=== PATIENT | female | born 1965 | race Caucasian/White ===

== ENCOUNTER 2016-08-20 15:16 | Emergency (ER) | payer BC ==
[~2016-08-20] VITALS: Ht 167.6 cm; Wt 74.3 kg
[~2016-08-20 15:16] MED LIST: ADVIL200 MG; ALEVE220 M2; ALLEGRA ALLERG180 MG PO; ALLEGRA180 MG PO; BENTYL10 MG PO; FLAGYL500 MG PO; FLEXERIL10 MG PO; HYDROCODON-ACE1 EAC7 PO; LEVOXYL137 MCG PO; LIDODERM 5% P1 PATCH TD; LOPERAMIDE2 MG PO; MOTRIN600 MG PO; PREDNISONE10 MG PO; PROBIOTIC1 EAC1 PO; PROMETHAZINE HC25 M1 PO; SINGULAIR10 MG PO; SYNTHROID175 MCG PO; ZOFRAN ODT4 MG PO
[2016-08-20 15:35] LABS: POINT-OF-CARE METER ID UU13113778
[2016-08-20 15:57] LABS: ADD MIUA? YES; BILIRUBIN NEGATIVE; BLOOD NEGATIVE; COLOR YELLOW ((YELLOW)); GLUCOSE (STRIP) >=500; KETONES 5; LEUKOCYTES NEGATIVE; NITRITE NEGATIVE; PROTEIN (STRIP) NEGATIVE; SPECIFIC GRAVITY 1.022 (1.000-1.030)
[2016-08-20 16:06] LABS: MCH 28.2 PG (29.0-34.0); MCHC 31.5 G/DL (30.0-36.0); MCV 89.5 FL (83-99); MEAN PLAT.VOLUME 11.2 uM^3 (9.5-12.4); PLATELET COUNT 173 K/uL (156-360); RBC DIS.WIDTH-CV 13.6 % (11.8-14.6); RBC DIS.WIDTH-SD 44.5 % (39-53); RED BLOOD COUNT 4.47 M/uL (3.80-5.20); WHITE BLOOD COUNT 7.5 K/uL (4.1-10.2)
[2016-08-20 16:08] LABS: BACTERIA RARE /HPF; CALCIUM OXALATE CRYSTALS 4+ /HPF; EPITHELIAL CELLS 2+ /HPF; MUCUS 1+ /LPF; RED BLOOD CELLS 0-5 /HPF (0-5); WHITE BLOOD CELLS 0-5 /HPF (0-5)
[2016-08-20 16:15] LABS: CHLORIDE 103 mEq/L (99-109); POTASSIUM 4.2 mEq/L (3.7-5.4); SODIUM 142 mEq/L (136-147)
[2016-08-20 16:17] LABS: GLUCOSE 343 mg/dL (70-99)
[2016-08-20 16:19] LABS: ANION GAP 8 MEQ/L (2-14)
[2016-08-20 16:21] LABS: GFR ESTIMATE (CALCULATED) > 59 mL/min/
[2016-08-20 16:22] LABS: UREA NITROGEN (BUN) 16 mg/dL (9-23)
[2016-08-20 17:19] VITALS: BP 136/60
== END 2016-08-20 17:21 | disposition home or self-care (01) ==
LOC: EME 15:16
PROVIDERS: Nurse Practitioner Family
DX: E11.649 Type 2 diabetes mellitus with hypoglycemia without coma (principal)
CPT/HCPCS: 80048; 81003; 82948; 85027; 99281; 99284

== ENCOUNTER 2016-12-29 05:06 | Emergency (ER) | payer BC ==
[~2016-12-29] VITALS: Ht 167.6 cm; Wt 86.5 kg
[2016-12-29 05:22] LABS: POINT-OF-CARE METER ID UU14100415
[2016-12-29 05:41] LABS: HEMATOCRIT 44.8 % (36.0-46.0); MCH 28.8 PG (29.0-34.0); MCHC 32.8 G/DL (30.0-36.0); MCV 87.7 FL (83-99); MEAN PLAT.VOLUME 10.9 uM^3 (9.5-12.4); PLATELET COUNT 212 K/uL (156-360); RBC DIS.WIDTH-CV 13.1 % (11.8-14.6); RBC DIS.WIDTH-SD 42.3 % (39-53); RED BLOOD COUNT 5.11 M/uL (3.80-5.20); WHITE BLOOD COUNT 18.1 K/uL (4.1-10.2)
[2016-12-29 05:44] LABS: INTER. NORMALIZED RATIO 0.9; PROTHROMBIN TIME 10.1 SEC (10.2-12.9)
[2016-12-29 05:45] LABS: CHLORIDE 101 mEq/L (99-109); POTASSIUM 4.1 mEq/L (3.7-5.4)
[2016-12-29 05:46] LABS: SODIUM 144 mEq/L (136-147)
[2016-12-29 05:47] LABS: GLUCOSE 117 mg/dL (70-99); PTT 30.4 SEC (25-37)
[2016-12-29 05:49] LABS: ANION GAP 13 MEQ/L (2-14)
[2016-12-29 05:51] LABS: GFR ESTIMATE (CALCULATED) > 59 mL/min/
[2016-12-29 05:52] LABS: UREA NITROGEN (BUN) 28 mg/dL (9-23)
[2016-12-29 05:55] LABS: TROP-I INTERPRETATION NEGATIVE; TROPONIN-I < 0.01 ng/mL (0.0-0.30)
[2016-12-29 07:43] LABS: ADD MIUA? YES; BILIRUBIN NEGATIVE; BLOOD NEGATIVE; GLUCOSE (STRIP) NEGATIVE; KETONES 5; LEUKOCYTES NEGATIVE; NITRITE NEGATIVE; PROTEIN (STRIP) 30; SPECIFIC GRAVITY 1.032 (1.000-1.030)
[2016-12-29 07:47] LABS: COLOR DK YELLOW ((YELLOW))
[2016-12-29 07:48] LABS: POINT-OF-CARE METER ID UU14100415
[2016-12-29 08:04] LABS: BACTERIA NONE SEEN /HPF; CALCIUM OXALATE CRYSTALS 4+ /HPF; EPITHELIAL CELLS 3+ /HPF; MUCUS 4+ /LPF; UCUL ADDED? NO; UNCLASSIFIED CRYSTALS 4+ /HPF
[2016-12-29] MEDS ORDERED: CIPRO500 MG PO (08:39)
[2016-12-29 08:54] VITALS: BP 118/60
== END 2016-12-29 08:55 | disposition home or self-care (01) ==
LOC: EME → EDBD 05:06 → EME 08:55
PROVIDERS: Emergency Medicine
DX: E11.649 Type 2 diabetes mellitus with hypoglycemia without coma (principal); N39.0 Urinary tract infection, site not specified; E03.9 Hypothyroidism, unspecified; Z79.4 Long term (current) use of insulin; Z91.81 History of falling
CPT/HCPCS: 70450; 71020; 80048; 81003; 82948; 83880; 84484; 85027; 85610; 85730; 93005; 99281; 99284; J2405

== ENCOUNTER 2017-07-19 23:33 | Emergency (ER) | payer BC ==
[~2017-07-19] VITALS: Ht 167.6 cm; Wt 69.7 kg
[~2017-07-19 23:33] MED LIST changes: +CIPRO500 MG PO
[2017-07-20 00:17] LABS: HEMATOCRIT 43.6 % (36.0-46.0); HEMOGLOBIN 14.1 G/DL (11.9-15.5); MCH 28.4 PG (29.0-34.0); MCHC 32.3 G/DL (30.0-36.0); MCV 87.9 FL (83-99); PLATELET COUNT 221 K/uL (156-360); RBC DIS.WIDTH-CV 13.2 % (11.8-14.6); RBC DIS.WIDTH-SD 42.7 % (39-53); RED BLOOD COUNT 4.96 M/uL (3.80-5.20); WHITE BLOOD COUNT 11.7 K/uL (4.1-10.2)
[2017-07-20 00:28] LABS: CHLORIDE 105 mEq/L (99-109); POTASSIUM 3.8 mEq/L (3.7-5.4); SODIUM 144 mEq/L (136-147)
[2017-07-20 00:30] LABS: GLUCOSE 172 mg/dL (70-99)
[2017-07-20 00:34] LABS: CREATININE 0.9 mg/dL (0.6-1.3); GFR ESTIMATE (CALCULATED) > 59 mL/min/
[2017-07-20 00:35] LABS: UREA NITROGEN (BUN) 19 mg/dL (9-23)
[2017-07-20 00:42] LABS: APPEARANCE CLOUDY ((CLEAR)); BILIRUBIN SMALL; BLOOD NEGATIVE; COLOR AMBER ((YELLOW)); GLUCOSE (STRIP) 50; KETONES 5; LEUKOCYTES TRACE; NITRITE NEGATIVE; PROTEIN (STRIP) 30; SPECIFIC GRAVITY 1.036 (1.000-1.030)
[2017-07-20 00:58] LABS: EPITHELIAL CELLS 2+ /HPF; MUCUS 1+ /LPF; RED BLOOD CELLS 0-5 /HPF (0-5); WHITE BLOOD CELLS 0-5 /HPF (0-5)
[2017-07-20 00:59] LABS: BACTERIA RARE /HPF; CALCIUM OXALATE CRYSTALS 2+ /HPF; UCUL ADDED? NO
[2017-07-20] MEDS ORDERED: BACTRIM,SEPT1 TABLET PO (01:02)
[2017-07-20] MEDS ORDERED: DIFLUCAN150 MG PO (01:15)
[2017-07-20 01:36] VITALS: BP 128/70
== END 2017-07-20 01:38 | disposition home or self-care (01) ==
LOC: EME → EDBD 23:33 → EME 23:33
PROVIDERS: Emergency Medicine Emergency Medical Services
DX: E11.649 Type 2 diabetes mellitus with hypoglycemia without coma (principal); T38.3X5A Adverse effect of insulin and oral hypoglycemic [antidiabetic] drugs, initial encounter; Z79.4 Long term (current) use of insulin; N39.0 Urinary tract infection, site not specified; R51 Headache
CPT/HCPCS: 80048; 81003; 85027; 99281; 99284

== ENCOUNTER 2018-01-06 12:39 | Emergency (ER) | payer OTHER ==
[~2018-01-06] VITALS: Ht 167.6 cm; Wt 100.9 kg
[~2018-01-06 12:39] MED LIST changes: +BACTRIM,SEPT1 TABLET PO; +DIFLUCAN150 MG PO
[2018-01-06 13:11] LABS: APPEARANCE SL.HAZY ((CLEAR)); BILIRUBIN NEGATIVE; BLOOD NEGATIVE; COLOR YELLOW ((YELLOW)); GLUCOSE (STRIP) NEGATIVE; KETONES NEGATIVE; LEUKOCYTES NEGATIVE; NITRITE NEGATIVE; PROTEIN (STRIP) NEGATIVE; SPECIFIC GRAVITY 1.017 (1.000-1.030); UROBILINOGEN 0.2 MG/DL (0.2-1.0)
[2018-01-06 13:18] LABS: BACTERIA NONE SEEN /HPF; EPITHELIAL CELLS 3+ /HPF; MUCUS TRACE /LPF; RED BLOOD CELLS 0-5 /HPF (0-5); UCUL ADDED? NO; WHITE BLOOD CELLS 0-5 /HPF (0-5)
[2018-01-06 15:07] LABS: HEMOGLOBIN 13.2 G/DL (11.9-15.5); MCHC 32.2 G/DL (30.0-36.0); MCV 86.9 FL (83-99); PLATELET COUNT 196 K/uL (156-360); RBC DIS.WIDTH-CV 13.5 % (11.8-14.6); RBC DIS.WIDTH-SD 43.3 % (39-53); RED BLOOD COUNT 4.72 M/uL (3.80-5.20); WHITE BLOOD COUNT 9.8 K/uL (4.1-10.2)
[2018-01-06 15:37] LABS: ALBUMIN 3.7 G/DL (3.2-4.8); CHLORIDE 102 MEQ/L (99-109); POTASSIUM 4.4 MEQ/L (3.7-5.4); SODIUM 141 MEQ/L (136-147); TOTAL BILIRUBIN 0.4 MG/DL (0.0-1.0)
[2018-01-06 15:43] LABS: ALKALINE PHOSPHATASE 112 IU/L (3-129); ALT (GPT) 12 IU/L (3-49); AST (GOT) 16 IU/L (2-34); CREATININE 0.8 MG/DL (0.6-1.3); GFR ESTIMATE (CALCULATED) > 59 mL/min/; GLUCOSE 334 mg/dL (70-99); TOTAL PROTEIN 6.3 G/DL (6.4-8.3); UREA NITROGEN (BUN) 16 mg/dL (9-23)
[2018-01-06 16:14] VITALS: BP 131/51
== END 2018-01-06 16:14 | disposition home or self-care (01) ==
LOC: EME 12:39
PROVIDERS: Physician Assistant Medical
DX: R39.11 Hesitancy of micturition (principal); E11.65 Type 2 diabetes mellitus with hyperglycemia; Z79.4 Long term (current) use of insulin; K58.9 Irritable bowel syndrome, unspecified; Z87.19 Personal history of other diseases of the digestive system; Z88.1 Allergy status to other antibiotic agents
CPT/HCPCS: 80053; 81003; 85027; 99281; 99284